=== PATIENT | male | born 1995 | race American Indian/Alaskan Native ===

== ENCOUNTER 2016-10-31 14:02 | Emergency (ER) | payer MEDICAID, OTHER ==
[2016-10-31 14:14] VITALS: BP 142/86
--- NOTE | 2016-10-31 14:24 | Emergency Department Report ---
Chief Complaint: Dyspnea/Respdistress Stated Complaint: SOB Time Seen by Provider: 10/31/16 14:21 - HPI History of Present Illness: pt c/o being sob x 2 days. PT states he works in construction and he was at work when his first started having his symptoms. Pt states he called out of work today because he felt dizzy - pt states dizziness resolved spontaneously - ROS Review of Systems: - fever - cough - Exam Vital Signs: Vital Signs 10/31/16 14:12 Temperature 98.3 F Pulse Rate 59 L Respiratory 16 Rate Blood Pressure 142/86 O2 Sat by Pulse 100 Oximetry Physical Exam: PT looks well, non toxic no wheezing no acute resp distress MSE screening note: Focused history and physical exam performed. Due to findings the following was ordered: xr, labs, ekg ED Disposition for MSE Condition: Stable
[2016-10-31 14:59] LABS: Basophils % (Auto) 0.4 % (0.0-1.8); Eosinophils % (Auto) 1.2 % (0.0-4.3); Hematocrit 45.3 % (35.5-45.6); Hemoglobin 14.5 gm/dl (11.8-15.2); Mean Corpuscular HGB Conc 32 % (32-34); Mean Corpuscular Hemoglobin 28 pg (28-32); Mean Corpuscular Volume 86 fl (84-94); Platelet Count 329 K/mm3 (140-440); Red Blood Count 5.28 M/mm3 (3.65-5.03); Red Cell Distribution Width 13.1 % (13.2-15.2); White Blood Count 4.5 K/mm3 (4.5-11.0)
[2016-10-31 15:00] LABS: Anion Gap 27 mmol/L; Blood Urea Nitrogen 11 mg/dL (9-20); Calcium 9.7 mg/dL (8.4-10.2); Carbon Dioxide 19 mmol/L (22-30); Chloride 97.4 mmol/L (98-107); Glucose 85 mg/dL (75-100); Potassium 4.1 mmol/L (3.6-5.0); Sodium 139 mmol/L (137-145)
--- NOTE | 2016-10-31 15:06 | XRay Report ---
ROUTINE CHEST, TWO VIEWS: HISTORY: Short of breath. The trachea, heart, mediastinal contour, lung skinner and bony thorax are unremarkable. IMPRESSION: Unremarkable chest x-ray.
--- NOTE | 2016-10-31 18:18 | Emergency Department Report ---
HPI - General Chief Complaint: Dyspnea/Respdistress Time Seen by Provider: 10/31/16 14:21 - HPI HPI: Patient here reports in triage that he had shortness of breath for the last 2 days and he was dizzy. 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 Patient has [place] but he said he doesn't have a primary care physician. He denies any shortness of breath or dizziness to me. Denies any similar incident. Denies any cough or chest pain. Denies any personal history of blood clots or family history of blood clots. He denies medical problems. Denies any fever or chills. ED Past Medical Hx - Past Medical History Previous Medical History?: No - Surgical History Past Surgical History?: Yes Additional Surgical History: left leg - Family History Family history: no significant - Social History Smoking Status: Never Smoker Substance Use Type: Alcohol - Medications Home Medications: Home Medications Medication Instructions Recorded Confirmed Last Taken Type Cephalexin [Keflex] 500 mg PO Q6H #40 capsule 02/14/13 Unknown Rx Ibuprofen [Motrin] 600 mg PO Q8H PRN #60 tablet 02/14/13 Unknown Rx Cetirizine HCl [ZyrTEC] 10 mg PO QAM #10 capsule 10/31/16 Unknown Rx ED Review of Systems ROS: Stated complaint: SOB Other details as noted in HPI Comment: All other systems reviewed and negative Constitutional: no symptoms reported Eyes: denies: eye discharge, vision change ENT: denies: ear pain, throat pain, congestion Respiratory: no symptoms reported Cardiovascular: denies: chest pain, palpitations, edema, syncope Gastrointestinal: denies: abdominal pain, nausea, vomiting, diarrhea Musculoskeletal: denies: back pain, joint swelling, arthralgia, myalgia Skin: denies: rash Neurological: denies: headache, numbness, paresthesias, confusion, abnormal gait , vertigo Physical Exam - Physical Exam Vital Signs: Vital Signs 10/31/16 14:12 Temperature 98.3 F Pulse Rate 59 L Respiratory 16 Rate Blood Pressure 142/86 O2 Sat by Pulse 100 Oximetry General: This is a 20-year-old male well-nourished well-developed in no acute distress Physical Exam: Head: Normocephalic, atraumatic. No abrasions, laceration or contusion Neck: Supple, no adenopathy. Full range of motion. No C-spine tenderness. No muscular tenderness Mouth: Moist, no pharyngeal exudate or erythema. Uvula is midline and oral airways patent. Tongue is normal. No trismus. No peritonsillar abscess. Nose: Nasal mucosa congested without erythema and clear drainage. Maxillary and frontal sinuses nontender to palpate Ear: Bilateral TMs congested without erythema, bilateral EAC without any redness swelling or drainage. Bilateral tract is nontender to palpate. Abdomen: Nontender the palpation in all quadrants, no guarding or rebound tenderness. No CVA tenderness and normal bowel sounds in all quadrants. Extremity: No clubbing, cyanosis or edema. +2 pulses in all extremities. No neurovascular compromise. Capillary refill is less than 3 seconds. Good color , sensation, movement and temperature in all extremities. Skin: Bronson and intact, no rash or lesions. PSYCH: Normal mood and behavior. Neurological: GCS of 15, speech is clear and fluid, alert and oriented 3. Normal gait, negative Romberg and negative pronator drift. No motor or sensory deficit. Back: No vertebral tenderness, no paraspinal tenderness, no saddle anesthesia,. Patient able to relate without any difficulties. ED Course Vital Signs 10/31/16 14:12 Temperature 98.3 F Pulse Rate 59 L Respiratory 16 Rate Blood Pressure 142/86 O2 Sat by Pulse 100 Oximetry - Reevaluation(s) Reevaluation #1: 10/31/16 18:26 Patient stable throughout ED course: ED Medical Decision Making - Lab Data Result diagrams: 10/31/16 14:29 10/31/16 14:29 Lab Results 10/31/16 10/31/16 Range/Units 14:29 14:29 WBC 4.5 (4.5-11.0) K/mm3 RBC 5.28 H (3.65-5.03) M/mm3 Hgb 14.5 (11.8-15.2) gm/dl Hct 45.3 (35.5-45.6) % MCV 86 (84-94) fl MCH 28 (28-32) pg MCHC 32 (32-34) % RDW 13.1 L (13.2-15.2) % Plt Count 329 (140-440) K/mm3 Lymph % (Auto) 34.9 (13.4-35.0) % [place] % (Auto) 7.8 H (0.0-7.3) % Eos % (Auto) 1.2 (0.0-4.3) % Baso % (Auto) 0.4 (0.0-1.8) % Lymph # 1.6 (1.2-5.4) K/mm3 [place] # 0.4 (0.0-0.8) K/mm3 Eos # 0.1 (0.0-0.4) K/mm3 Baso # 0.0 (0.0-0.1) K/mm3 Seg Neutrophils % 55.7 (40.0-70.0) % Seg Neutrophils # 2.5 (1.8-7.7) K/mm3 Sodium 139 (137-145) mmol/L Potassium 4.1 (3.6-5.0) mmol/L Chloride 97.4 L (98-107) mmol/L Carbon Dioxide 19 L (22-30) mmol/L Anion Gap 27 mmol/L BUN 11 (9-20) mg/dL Creatinine 1.0 (0.8-1.5) mg/dL Estimated GFR > 60 ml/min BUN/Creatinine Ratio 11.00 % Glucose 85 (75-100) mg/dL Calcium 9.7 (8.4-10.2) mg/dL Troponin T < 0.010 (0.00-0.029) ng/mL - Radiology Data Radiology results: report reviewed Chest x-ray revealed unremarkable x-ray. - Medical Decision Making ED course: I explained to patient that based on his physical findings he has upper respiratory tract infection. I explained to him that his lab results was within normal limits and chest x-ray showed normal findings. She goes to [facility] for primary care so I told him he needs to call tomorrow to schedule visit for follow-up visit. He was understanding discharge instruction in treatment plan and discharged home with prescription for Zyrtec. Critical care attestation.: If time is entered above; I have spent that time in minutes in the direct care of this critically ill patient, excluding procedure time. ED Disposition Clinical Impression: Upper respiratory tract infection Qualifiers: URI type: unspecified URI Qualified Code(s): J06.9 - Acute upper respiratory infection, unspecified Disposition: TO HOME OR SELFCARE Is pt being admited?: No Does the pt Need Aspirin: No Condition: Stable Instructions: Upper Respiratory Infection (ED) Additional Instructions: Please follow up with primary care as recommended Increase fluid intake Take medication as prescribed . Please keep affected area clean and dry Prescriptions: Cetirizine HCl [ZyrTEC] 10 mg PO QAM #10 capsule Referrals: PRIMARY CAREMD [Primary Care Provider] - 11/03/16 [facility] [Provider Group] - 11/03/16 Forms: Work/School Release Form(ED)
== END 2016-10-31 18:49 | disposition home or self-care (01) ==
LOC: ED 14:02
DX: J06.9 Acute upper respiratory infection, unspecified (principal)
CPT/HCPCS: 36415; 71020; 80048; 84484; 85025; 93005; 93010; 99284

== ENCOUNTER 2017-10-06 15:49 | Emergency (ER) | payer SELFPAY ==
[2017-10-06 15:54] VITALS: BP 129/85
[2017-10-06] MEDS ORDERED: NORCO 5/325 PO ONE (16:33)
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
[2017-10-06] MEDS ORDERED: ZOFRAN ODT ONE (17:53)
[2017-10-06] MEDS ORDERED: ZOFRAN ODT PO ONE (17:58)
== END 2017-10-06 17:57 | disposition home or self-care (01) ==
LOC: ED 15:49
DX: M54.5 Low back pain (principal); V47.5XXA Car driver injured in collision with fixed or stationary object in traffic accident, initial encounter; Y93.89 Activity, other specified; Y92.89 Other specified places as the place of occurrence of the external cause; Y99.8 Other external cause status
CPT/HCPCS: 72070; 72100; Q0162

== ENCOUNTER 2018-05-21 08:41 | Emergency (ER) | payer OTHER ==
[2018-05-21] MEDS ORDERED: NACL 0.9% 1000 ML 1,000 ML IV ONE (09:56)
[2018-05-21] MEDS ORDERED: ZOFRAN IV ONE (09:56)
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
[2018-05-21 10:17] LABS: Basophils % (Auto) 0.4 % (0.0-1.8); Eosinophils % (Auto) 0.1 % (0.0-4.3); Hematocrit 42.7 % (35.5-45.6); Hemoglobin 13.4 gm/dl (11.8-15.2); Lymphocytes % (Auto) 10.5 % (13.4-35.0); Mean Corpuscular HGB Conc 31 % (32-34); Mean Corpuscular Volume 86 fl (84-94); Monocytes # (Auto) 0.5 K/mm3 (0.0-0.8); Monocytes % (Auto) 5.7 % (0.0-7.3); Platelet Count 339 K/mm3 (140-440); Red Blood Count 4.97 M/mm3 (3.65-5.03); Red Cell Distribution Width 13.8 % (13.2-15.2)
[2018-05-21 10:33] LABS: Alanine Aminotransferase 50 units/L (7-56); Albumin 4.6 g/dL (3.9-5); BUN/Creatinine Ratio 9; Blood Urea Nitrogen 10 mg/dL (9-20); Calcium 8.9 mg/dL (8.4-10.2); Hemolysis Index 11
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
--- NOTE | 2018-05-21 11:34 | Cat Scan Report ---
CT FACIAL BONES WITHOUT CONTRAST: HISTORY: Trauma. TECHNIQUE: Helical CT images with sagittal and coronal CT reformations. FINDINGS: All paranasal sinuses are clear. No sinus wall fracture, fluid level or opacification. The orbital cavities are symmetric and intact. The mandible is intact. The skull base and upper cervical spine demonstrate no evidence for acute injury. IMPRESSION: Unremarkable CT of the facial bones.
--- NOTE | 2018-05-21 11:37 | Cat Scan Report ---
CT ABDOMEN PELVIS WITH CONTRAST: HISTORY: Trauma. COMPARISON: none. TECHNIQUE: Helical CT in 1.25mm intervals following IV contrast. Sagittal and coronal reconstructions. FINDINGS: Lung bases: Normal. Liver: Normal. Biliary system: Normal. Pancreas: Normal. Spleen: Normal. Kidneys/ureters/bladder: Normal. Adrenal glands: Normal. Aorta: Normal. Intestines: Normal. Appendix: Normal. Pelvic viscera: Normal. Ascites: None. Adenopathy: None. Musculoskeletal: Normal. IMPRESSION: Unremarkable CT scan of the abdomen and pelvis with contrast.
--- NOTE | 2018-05-21 11:38 | Cat Scan Report ---
CT CHEST WITH CONTRAST: HISTORY: Trauma. COMPARISON: none. TECHNIQUE: Helical CT in 1.25mm intervals following IV contrast. Sagittal and coronal reformatted images. FINDINGS: Thyroid gland: Normal. Tracheobronchial tree: Normal. Esophagus: Normal. Heart: Normal. Pericardium: Normal. Mediastinum: Normal. Lung Mukherjee: Normal. Pleural Spaces: Normal. Musculoskeletal: Normal. IMPRESSION: Unremarkable CT chest with contrast.
[2018-05-21 13:18] VITALS: BP 121/73
== END 2018-05-21 13:18 | disposition home or self-care (01) ==
LOC: ED 08:41
DX: S00.83XA Contusion of other part of head, initial encounter (principal); S20.219A Contusion of unspecified front wall of thorax, initial encounter; R10.811 Right upper quadrant abdominal tenderness; V49.49XA Driver injured in collision with other motor vehicles in traffic accident, initial encounter; Y93.89 Activity, other specified; Y92.488 Other paved roadways as the place of occurrence of the external cause; Y99.8 Other external cause status
CPT/HCPCS: 36415; 70450; 70486; 71260; 72125; 74177; 80053; 85025; 96374; 99284; J2405; J7030; Q9967